=== PATIENT | female | born 1990 | race Caucasian/White ===

== ENCOUNTER → 2016-08-26 | Outpatient (CLI) | payer BC ==
--- NOTE | 2016-08-26 15:44 | US ---
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 Noticeable fullness in RUQ under br a line EXAM MEASUREMENTS: Liver Length: 19.5 cm Gallbladder Wall: 0.2 cm CBD: 0.5 cm Spleen: 11.5 cm Right Kidney: 12.5 x 5.0 x 4.2 cm Left Kidney: 10.9 x 5.1 x 5.1 cm overlying bowel gas limits study Pancreas: wnl Liver: difficult to penetrate and slightly enlarged, otherwise wnl Gallbladder: wnl Evidence for sonographic Forbes's sign: no CBD: wnl Spleen: wnl Right Kidney: wnl Left Kidney: wnl Upper IVC: wnl Abd Aorta: wnl scanned focal area of fullness in RUQ and no fluid collections or masses seen IMPRESSION: 1. Mild fatty infiltration the liver. 2. Right upper quadrant palpable region is unremarkable.
== END | disposition home or self-care (01) ==
LOC: RADUSWWP 08:27
PROVIDERS: ATTEND Family Medicine
DX: K76.0 Fatty (change of) liver, not elsewhere classified (principal); D17.1 Benign lipomatous neoplasm of skin and subcutaneous tissue of trunk
CPT/HCPCS: 76700

== ENCOUNTER → 2018-10-24 | Outpatient (CLI) | payer OTHER ==
--- NOTE | 2018-10-24 18:03 | XR ---
EXAMINATION TYPE: XR lumbar spine 2 or 3V DATE OF EXAM: 10/24/2018 COMPARISON: None HISTORY: M 51.36 TECHNIQUE: Three-view lumbar spine FINDINGS: There 5 lumbar-type vertebral bodies. The pedicles are intact. Disc heights appear preserve d. Vertebral body heights are preserved. IMPRESSION: 1. Normal three-view lumbar spine
== END | disposition home or self-care (01) ==
LOC: RADXRMAIN 14:10
PROVIDERS: ATTEND Family Medicine
DX: M51.36 Other intervertebral disc degeneration, lumbar region (principal)
CPT/HCPCS: 72100

== ENCOUNTER → 2021-10-15 | Outpatient (CLI) | payer OTHER | END | disposition home or self-care (01) | LOC: LABWHC1 09:51 | PROVIDERS: ATTEND Obstetrics & Gynecology Obstetrics | DX: Z36.9 Encounter for antenatal screening, unspecified (principal) | CPT/HCPCS: 36415; 82950 ==

== ENCOUNTER → 2021-10-22 | Outpatient (CLI) | payer OTHER ==
[2021-10-22 12:57] LABS: Glucose 3 Hour, Gest 66 mg/dL
== END | disposition home or self-care (01) ==
LOC: LABWHC1 08:03
PROVIDERS: ATTEND Obstetrics & Gynecology Obstetrics
DX: O99.810 Abnormal glucose complicating pregnancy (principal); Z3A.00 Weeks of gestation of pregnancy not specified
CPT/HCPCS: 36415; 82951; 82952

== ENCOUNTER 2021-11-17 12:51 | Outpatient (CLI) | payer OTHER ==
[2021-11-17 13:47] VITALS: BP 123/75; PULSE 104; RESP 18; TEMP 98
== END 2021-11-17 13:40 | disposition home or self-care (01) ==
LOC: FBPOP 12:51
PROVIDERS: ATTEND Obstetrics & Gynecology Obstetrics
DX: O76 Abnormality in fetal heart rate and rhythm complicating labor and delivery (principal)
CPT/HCPCS: 59025; 99213

== ENCOUNTER 2021-12-23 11:33 | Inpatient (IN) | payer OTHER ==
[2021-12-23] MEDS ORDERED: miSOPROStoL 25 MCG TAB VAGINAL PRN (11:57)
[2021-12-23] MEDS ORDERED: LACTATED RINGERS 1,000 ML IV SCH (12:00)
[2021-12-23] MEDS ORDERED: DINOPROSTONE 10 MG INSERT.ER VAGINAL ONE (12:20)
--- NOTE | 2021-12-23 12:55 | P.HPOB ---
History of Present Illness H&P Date: 12/23/21 Chief Complaint: IUP at 37-4/7 weeks, gestational hypertension with proteinuria This is a 31-year-old at 37-4/7 weeks that presents to labor and delivery for induction of labor secondary to gestational hypertension with significant proteinuria. Patient was seen in the office last week with noted blood pressures of 130s over 80s in addition to 3+ proteinuria. 24 hour urine was obtained. Results of greater than 700 mg of protein in the 24-hour urine specimen. Preeclampsia labs were essentially negative with the exception of anemia, hemoglobin of 8.5, uric acid elevated at 5.2. In addition patient had an ultrasound done around 35 weeks of reveal ing a 3 did weight 4 lbs. 13 oz., 16th percentile, MARIJA of 21. blood work she is a blood type of O+, rubella status immune, RPR nonreactive, B surface antigen negative, HIV negative, she did pass her 3 hour Glucola, she received T dap on 913, group beta strep cultures are unknown therefore we'll treat with antibiotics during labor Review of Systems Constitutional: Denies chills, Denies fatigue, Denies fever Ears, nose, mouth and throat: Denies headache Cardiovascular: Reports leg edema Respiratory: Denies dyspnea Gastrointestinal: Denies nausea, Denies vomiting Genitourinary: Reports Past Medical History History of Any Multi-Drug Resistant Organisms: None Reported Smoking Status: Never smoker Medications and Allergies Home Medications Medication Instructions Recorded Confirmed Type Omeprazole [PriLOSEC] 20 mg PO DAILY 11/17/21 12/23/21 History Vit No.179/Iron/Folic 1 each PO DAILY 11/17/21 12/23/21 History [ Tablet] Aspirin [Children's Aspirin] 81 mg PO DAILY 12/23/21 12/23/21 History Cholecalciferol [Vitamin D3 (125 125 mcg PO DAILY 12/23/21 12/23/21 History Mcg = 5000 Iu)] Levothyroxine Sodium [Synthroid] 25 mcg PO DAILY 12/23/21 12/23/21 History Allergies Allergy/AdvReac Type Severity Reaction Status Date / Time No Known Allergies Allergy Verified 11/17/21 13:12 Exam Osteopathic Statement: *. No significant issues noted on an osteopathic structural exam other than those noted in the History and Physical/Consult. Intake and Output 12/22/21 12/23/21 12/23/21 22:59 06:59 14:59 Other: Weight 143.789 kg targeted physical exam is done on this date, in general this is a well nourished well developed obese female in NAD, breathing is non labored, heart has a regular rate and rhythm, abdomen is obese and gravid, heart tones are cat 1 and no contractions are noted. On cervical exam cervix is ft/60/-3 vertex presentation based on office US. cervidil is placed without difficulty Assessment and Plan (1) 37 or more weeks gestation of Current Visit: Yes Status: Acute Code(s): VDM6030 - SNOMED Code(s): 93655603 (2) SGA (small for gestational age), , affecting care of mother, antepartum Current Visit: Yes Status: Acute Code(s): O36.5990 - MATERN CARE FOR OTH OR SUSP POOR FETL GRTH, UNSP TRI, UNSP SNOMED Code(s): 447301641 (3) Gestational HTN Current Visit: Yes Status: Acute Code(s): O13.9 - GESTATIONAL HTN W/O SIGNIFICANT PROTEINURIA, UNSP TRIMESTER SNOMED Code(s): 22092048 (4) Proteinuria complicating Current Visit: Yes Status: Acute Code(s): O12.10 - GESTATIONAL PROTEINURIA, UNSPECIFIED TRIMESTER SNOMED Code(s): 81916639 Plan: 31-year-old at 37 and 47 weeks that presents for induction of labor secondary to gestational hypertension with proteinuria. Patient did undergo IVF for conception. Small for gestational age has been watched during for the , last ultrasound 17th percentile. testing has been completed throughout the normal in nature. Patient had Cervidil place d for induction of labor. 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
[2021-12-23 12:57] LABS: Anisocytosis Slight; Basophils % (A) 0 %; Eosinophils % (A) 0 %; HCT 29.4 % (34.0-46.0); Hypochromasia Marked; Lymphocytes # (A) 1.6 k/uL (1.0-4.8); Lymphocytes % (A) 17 %; MCHC 30.6 g/dL (31.0-37.0); MCV 68.6 fL (80.0-100.0); Mean Platelet Volume 9.4; Microcytosis Marked; Monocytes # (A) 0.4 k/uL (0-1.0); Monocytes % (A) 5 %; Neutrophils # (A) 7.3 k/uL (1.3-7.7); Neutrophils % (A) 76 %; Platelet Count 223 k/uL (150-450); Poikilocytosis Slight; RBC 4.29 m/uL (3.80-5.40); WBC 9.6 k/uL (3.8-10.6)
[2021-12-23 13:10] LABS: ALT 16 U/L (4-34); AST 23 U/L (14-36); African American GFR (CKD) >90 (>60 ml/min/1.73 sqM); Blood Urea Nitrogen 12 mg/dL (7-17); LDH 497 U/L (313-618); Non-African American GFR(CKD) >90 (>60 ml/min/1.73 sqM); Uric Acid 4.8 mg/dL (3.7-7.4)
[2021-12-23 13:18] LABS: INR 0.8 (<1.2); Partial Thromboplastin Time 22.3 sec (22.0-30.0); Prothrombin Time 9.4 sec (9.0-12.0)
[2021-12-23] MEDS ORDERED: AMPICILLIN 2,000 MG in SODIUM CHLORIDE 0.9% 100 ML IVPB STA (17:07)
[2021-12-23] MEDS ORDERED: OXYTOCIN 10 UNIT/ML 1 ML VIAL IM PRN (17:07)
[2021-12-23] MEDS ORDERED: METHYLERGONOVINE 0.2 MG/ML 1 ML AMP IM PRN (17:07)
[2021-12-23] MEDS ORDERED: CARBOPROST TROMETHAMINE 250 MCG/ML 1 ML AMP IM PRN (17:07)
[2021-12-23] MEDS ORDERED: TERBUTALINE 1 MG/ML VIAL SQ PRN (17:07)
[2021-12-23] MEDS ORDERED: LIDOCAINE 0.5% (PF) 5 MG/ML (50 ML SDV) SQ PRN (17:07)
[2021-12-23] MEDS ORDERED: BUTORPHANOL 1 MG/ML 1 ML VIAL IV PRN (17:09)
[2021-12-24] MEDS: OXYTOCIN 30 UNITS/500 ML NS 30 UNIT in SALINE 1 500ML.BAG IV SCH ×2 (00:15→20:22)
[2021-12-24] MEDS: LACTATED RINGERS 1,000 ML IV SCH ×4 (00:15→18:20)
[2021-12-24] MEDS: AMPICILLIN 1,000 MG in SODIUM CHLORIDE 0.9% 50 ML IVPB SCH ×7 (04:42→23:12)
[2021-12-24] MEDS: LEVOTHYROXINE 25 MCG TAB PO SCH (06:25)
[2021-12-24] MEDS: PRENATAL VIT-IRON-FOLIC ACID 1 EACH TABLET PO SCH (09:07)
[2021-12-25] MEDS: AMPICILLIN 1,000 MG in SODIUM CHLORIDE 0.9% 50 ML IVPB SCH (03:49)
[2021-12-25] MEDS ORDERED: ceFAZolin 3 GM in SODIUM CHLORIDE 0.9% 100 ML IVPB ONE (04:39)
[2021-12-25] MEDS ORDERED: CITRIC ACID-SODIUM CITRATE 15 ML CUP PO ONE (04:39)
[2021-12-25] MEDS ORDERED: miSOPROStoL 200 MCG TAB RECTAL STA (04:51)
[2021-12-25] MEDS ORDERED: MORPHINE SULFATE (PF) 0.3 MG/0.3 ML SYR ONE (05:11)
[2021-12-25] MEDS ORDERED: ePHEDrine 50 MG/ML 1 ML VIAL ONE (05:11)
[2021-12-25] MEDS ORDERED: OXYTOCIN 30 UNITS/500 ML NS BAG IV ONE (05:11)
[2021-12-25] MEDS ORDERED: ONDANSETRON 4 MG/2 ML VIAL ONE (05:11)
[2021-12-25] MEDS ORDERED: DEXAMETHASONE SOD PHOS (MDV) 100 MG/10 ML VIAL ONE (05:11)
--- NOTE | 2021-12-25 06:12 | P.OP ---
Date of Procedure: 12/25/21 Preoperative Diagnosis: IUP at 37 and 4, gestational hypertension with proteinuria, failed induction Postoperative Diagnosis: Same Procedure(s) Performed: Primary low transverse section Anesthesia: spinal Surgeon: Libertad Maxwell Stock Room Manager #1: Leah Lobo Estimated Blood Loss (ml): 387 IV fluids (ml): 900 Urine output (ml): 100 Pathology: other (Placenta) Condition: stable Disposition: observation Indications for Procedure: 31-year-old at 37-4/7 weeks that presented to labor and delivery approximately 24 hours ago for Cervidil induction of labor. Cervidil was placed without difficulty and patient was noted to be fingertip dilated. Patient was being induced for gestational hypertension with proteinuria. Slightly elevated blood pressures in the office were noted 130s over high 80s, 140s over 90s 24 urine and preeclampsia workup was begun. Refer urine with greater than supplement milligrams of protein was appreciated. Given elevated proteinuria decision was made to proceed with induction of labor. Patient made very minimal change with the Cervidil overnight coming 1 cm/thick/high, amniotomy was performed and clear fluid was obtained. Patient was begun on Pitocin for a ugmentation of labor. Patient made no change and after almost 24 hours no cervical change has been appreciated. Patient is not uncomfortable at this time. Patient rates she has only noted cramping during the entire induction process. Patient is requesting at this time. Patient and are counseled on risks given her obesity and risk of infection. Patient states understanding and wishes to proceed. Operative Findings: Arcuate uterus is appreciated, normal ovaries bilaterally, viable female infant delivered at 541, weight of 4 lbs. 10 oz., Apgars of 8 and 9 at one and 5 minutes respectively. Description of Procedure: Patient was taken back to the operating suite where spinal anesthesia was found be adequate by the anesthesia department. She was prepped and draped in the normal sterile fashion in the dorsal supine position. A Pfannenstiel skin incision was made with the scalpel and carried through to the underlying layer of fascia. The fascia was then incised in the midline and extended laterally. The superior aspect the fascial incision was then grasped yoel clamps, elevated and underlying rectus muscles dissected off sharply. Attention then turned to the inferior aspect of the fascial incision which was grasped with Yoel clamps elevated and underlying rectus muscles dissected off sharply. The rectus muscles were in the midline the peritoneum was identified and entered. The bladder blade was then inserted and the pelvis. The vesicouterine peritoneum was identified and the bladder flap was created using sharp and blunt dissection. Hysterotomy incision was made with the scalpel, the infant was encountered in a vertex presentation. Via vacuum assisted the was deliv ered without difficulty, the umbilical cord was doubly clamped and cut and the was handing off to awaiting RN. Cord blood was then taken. The placenta was delivered mainly and the uterus was cleared of all clots and debris. The uterus was exteriorized from the abdomen and the hysterotomy incision was closed with 0 Vicryl in a running locked fashion. A second indicating suture was performed. Small amount bleeding was noted on the midportion of the uterine incision therefore a [id number]-[id number] suture was used to obtain hemostasis. The pelvis was then copiously irrigated the hysterotomy incision was inspected found to be hemostatic. The uterus was returned to the abdomen. The gutters were cleared of all clots and debris. Once again the uterine incision was inspected and found be hemostatic. The fascia was then closed with 0 Vicryl in a running fashion from one lateral edge the midline and the other lateral edge the midline. Subcu tissue was inspected and any points of bleeding were made hemostatic with the Bovie. The subcutaneous tissue was then closed with 3-0 Vicryl in a running fashion. The skin was then closed with 4-0 Vicryl in a subcuticular fashion. Steri-Strips and sterile dressings were applied. All counts were correct 2. Patient and infant tolerated delivery well and are resting comfortable he.
[2021-12-25] MEDS ORDERED: diphenhydrAMINE 50 MG/ML 1 ML VIAL IVP PRN ×2 (06:17)
[2021-12-25] MEDS ORDERED: diphenhydrAMINE 50 MG CAP PO PRN (06:17)
[2021-12-25] MEDS ORDERED: OXYTOCIN 30 UNITS/500 ML NS 30 UNIT in SALINE 1 500ML.BAG IV SCH (06:17)
[2021-12-25] MEDS ORDERED: diphenhydrAMINE 25 MG CAP PO PRN (06:17)
[2021-12-25] MEDS ORDERED: ONDANSETRON 4 MG/2 ML VIAL IVP PRN (06:17)
[2021-12-25] MEDS ORDERED: ACETAMINOPHEN IV (For NPO) 1,000 MG in EMPTY BAG 1 BAG IVPB PRN (06:17)
[2021-12-25] MEDS ORDERED: SIMETHICONE 80 MG CHEWABLE PO PRN (06:17)
[2021-12-25] MEDS ORDERED: NALOXONE 0.4 MG/ML 1 ML VIAL IV PRN (06:17)
[2021-12-25] MEDS ORDERED: ZOLPIDEM 5 MG TAB PO PRN (06:17)
[2021-12-25] MEDS ORDERED: METOCLOPRAMIDE 5 MG/ML 2 ML VIAL IVP PRN (06:17)
[2021-12-25] MEDS: LACTATED RINGERS 1,000 ML IV SCH ×5 (06:21→18:22)
[2021-12-25] MEDS: ACETAMINOPHEN TAB 500 MG TAB PO SCH ×3 (08:45→20:32)
[2021-12-25] MEDS: LEVOTHYROXINE 25 MCG TAB PO SCH (08:56)
[2021-12-25] MEDS: SENNOSIDES-DOCUSATE SODIUM 1 EACH TAB PO SCH ×2 (08:57→20:32)
[2021-12-25] MEDS: PRENATAL VIT-IRON-FOLIC ACID 1 EACH TABLET PO SCH (09:33)
[2021-12-25] MEDS ORDERED: IBUPROFEN IV 800 MG in SODIUM CHLORIDE 0.9% 250 ML IV PRN (12:00)
[2021-12-25] MEDS: IBUPROFEN 600 MG TAB PO SCH ×2 (17:17→23:18)
[2021-12-26] MEDS: LACTATED RINGERS 1,000 ML IV SCH ×3 (00:55→06:21)
[2021-12-26] MEDS: ACETAMINOPHEN TAB 500 MG TAB PO SCH ×3 (04:43→12:26)
[2021-12-26] MEDS: IBUPROFEN 600 MG TAB PO SCH ×4 (05:13→22:13)
[2021-12-26] MEDS: LEVOTHYROXINE 25 MCG TAB PO SCH (05:13)
--- NOTE | 2021-12-26 07:07 | P.PN ---
Progress Note - Text 12/26/21 647am 31-year-old female status post with spinal Duramorph. Patient seen and evaluated for postop pain control, patient has a VAS of 5 with no complains of nausea vomiting or pruritus. She does have headache which she reports as VAS of 5 with a pain located around her neck. There is no photophobia and she was sitting up while she was talking to me, at this point I do not recommend any invasive procedure. Patient works to be observed and treated with fluids and caffeine if need be
[2021-12-26 07:57] LABS: Anisocytosis Slight; Basophils % (A) 0 %; Eosinophils # (A) 0.1 k/uL (0-0.7); Eosinophils % (A) 0 %; HCT 25.2 % (34.0-46.0); Hypochromasia Marked; Lymphocytes # (A) 2.7 k/uL (1.0-4.8); Lymphocytes % (A) 23 %; MCH 20.1 pg (25.0-35.0); MCHC 29.1 g/dL (31.0-37.0); MCV 69.2 fL (80.0-100.0); Mean Platelet Volume 9.3; Microcytosis Marked; Monocytes # (A) 0.5 k/uL (0-1.0); Monocytes % (A) 4 %; Neutrophils # (A) 7.7 k/uL (1.3-7.7); Neutrophils % (A) 68 %; Platelet Count 207 k/uL (150-450); Poikilocytosis Slight; RBC 3.65 m/uL (3.80-5.40); RDW 18.2 % (11.5-15.5); WBC 11.5 k/uL (3.8-10.6)
[2021-12-26 08:05] LABS: HGB 7.3 gm/dL (11.4-16.0)
[2021-12-26] MEDS: SENNOSIDES-DOCUSATE SODIUM 1 EACH TAB PO SCH ×3 (08:13→20:00)
--- NOTE | 2021-12-26 09:00 | P.PNOBGPC ---
Subjective - Subjective Principal diagnosis: stop day 1 status post primary Interval history: patient is doing well overall. She is ambulating and voiding without difficulty. She states her pain is controlled. She is tolerating a regular diet without nausea or vomiting. She is pumping and breast-feeding. Patient reports: Reports appetite normal, Reports voiding normally, Reports pain well controlled, Reports ambulating normally : doing well Objective - Vital Signs Latest vital signs: Vital Signs Temp Pulse Resp BP Pulse Ox 12/26/21 04:00 98.2 F 77 18 130/76 12/26/21 00:00 98.4 F 85 18 130/69 12/25/21 20:00 98.6 F 144 H 18 130/72 12/25/21 16:00 97.9 F 88 16 130/78 96 12/25/21 11:00 97.4 F L 70 14 120/70 Intake and Output 12/25/21 12/26/21 12/26/21 22:59 06:59 14:59 Other: # Voids 1 - Exam Extremities: Present: normal, edema Abdomen: Present: normal appearance, soft Incision: Present: normal, dry, intact Uterus: Present: normal, firm - Labs Labs: Abnormal Lab Results - Last 24 Hours (Table) 12/26/21 Range/Units 07:11 WBC 11.5 H (3.8-10.6) k/uL RBC 3.65 L (3.80-5.40) m/uL Hgb 7.3 L D (11.4-16.0) gm/dL Hct 25.2 L (34.0-46.0) % MCV 69.2 L (80.0-100.0) fL MCH 20.1 L (25.0-35.0) pg MCHC 29.1 L (31.0-37.0) g/dL RDW 18.2 H (11.5-15.5) % Assessment and Plan (1) 37 or more weeks gestation of Current Visit: Yes Status: Acute Code(s): VAE2467 - SNOMED Code(s): 59007075 (2) SGA (small for gestational age), , affecting care of mother, antepartum Current Visit: Yes Status: Acute Code(s): O36.5990 - MATERN CARE FOR OTH OR SUSP POOR FETL GRTH, UNSP TRI, UNSP SNOMED Code(s): 582878693 (3) Gestational HTN Current Visit: Yes Status: Acute Code(s): O13.9 - GESTATIONAL HTN W/O SI GNIFICANT PROTEINURIA, UNSP TRIMESTER SNOMED Code(s): 88910899 (4) Proteinuria complicating Current Visit: Yes Status: Acute Code(s): O12.10 - GESTATIONAL PROTEINURIA, UNSPECIFIED TRIMESTER SNOMED Code(s): 17383487 (5) Failed induction of labor Current Visit: Yes Status: Acute Code(s): O61.9 - FAILED INDUCTION OF LABOR, UNSPECIFIED SNOMED Code(s): 65299837 (6) S/P section Current Visit: Yes Status: Acute Code(s): Z98.891 - HISTORY OF UTERINE SCAR FROM PREVIOUS SURGERY SNOMED Code(s): 854797408 Plan: patient is doing well postoperatively. Encouraged increase ambulation today. Once dressing is discontinued we will place overdressing an attempt to decrease risk of infection. Anticipate discharge home tomorrow.
[2021-12-26] MEDS: PRENATAL VIT-IRON-FOLIC ACID 1 EACH TABLET PO SCH (10:24)
[2021-12-26] MEDS: IRON POLYSACCHARIDES COMPLEX 150 MG CAP PO SCH (10:51)
[2021-12-27] MEDS: ACETAMINOPHEN TAB 500 MG TAB PO SCH ×2 (00:16→08:41)
[2021-12-27] MEDS: LEVOTHYROXINE 25 MCG TAB PO SCH (06:19)
[2021-12-27] MEDS: IBUPROFEN 600 MG TAB PO SCH ×2 (06:19→12:17)
[2021-12-27] MEDS: SENNOSIDES-DOCUSATE SODIUM 1 EACH TAB PO SCH (08:41)
[2021-12-27] MEDS: PRENATAL VIT-IRON-FOLIC ACID 1 EACH TABLET PO SCH (08:41)
[2021-12-27] MEDS: IRON POLYSACCHARIDES COMPLEX 150 MG CAP PO SCH (08:42)
[2021-12-27 09:03] VITALS: BP 136/87; PULSE 106; RESP 16; TEMP 97.6
[2021-12-27] MEDS ORDERED: CYCLOBENZAPRINE 10 MG TAB PO PRN (09:24)
--- NOTE | 2021-12-27 09:36 | P.DS ---
Providers Date of admission: 12/23/21 11:33 Expected date of discharge: 12/27/21 Attending physician: Libertad Maxwell Primary care physician: Stated None - Discharge Diagnosis(es) (1) 37 or more weeks gestation of Current Visit: Yes Status: Acute (2) Failed induction of labor Current Visit: Yes Status: Acute (3) Gestational HTN Current Visit: Yes Status: Acute (4) Proteinuria complicating Current Visit: Yes Status: Acute (5) S/P section Current Visit: Yes Status: Acute (6) SGA (small for gestational age), , affecting care of mother, antepartum Current Visit: Yes Status: Acute Hospital Course: This is a 31-year-old 1 now para 1 woman who was admitted at 37-4/7 weeks' gestation for induction of labor secondary to gestational hypertension with proteinuria. She was admitted and received Cervidil cervical ripening. She then underwent a Pitocin induction of labor with artificial rupture of membranes however she had no cervical roll changer approximately 24 hours of induction therefore she was taken for primary low transverse section. Findings at the time of were significant for a arcuate shaped uterus. Liveborn female weighing 4 lbs. 10 oz. with Apgars of 8 at 1 minute and 9 at 5 minutes. Please see the operative report for details. The patient's postoperative course was relatively unremarkable. Her admission hemoglobin was 9.0 and her postop day 1 hemoglobin was 7.3. She was asymptomatic with stable vital signs and no active vaginal bleeding. She did complain of significant headache and was evaluated on 2 occasions by the anesthesiology team for possible spinal headache. Her headache is not consistent with a spinal headache and on postop day 2 she describes this more as pain in her neck upper shoulders and back of her head especially with movement of her head. This is more consistent with possible muscle spasm and she was started on a trial of cyclobenzaprine. Her blood pressures remained stable throughout her postoperative course. There were mainly in the 130s over 70s to 80s. The patient strongly desired discharge home on postoperative day #2 despite ongoing pain in her neck and uterus. She had minimal lochia, her incision without healing, her vital signs are stable and she was ambulating and voiding without difficulty. She was therefore deemed stable for discharge home with close instruction for care and follow-up. Procedures: Primary low transverse section Patient Condition at Discharge: Good Plan - Discharge Summary New Discharge Prescriptions: New Ibuprofen [Motrin] 600 mg PO Q6H tab Cyclobenzaprine [Flexeril] 10 mg PO TID PRN #15 tab PRN Reason: Muscle Spasm Iron Polysaccharides Complex [Niferex-150] 150 mg PO DAILY #30 cap Sennosides-Docusate Sodium [Senokot-S] 2 each PO BID@0800,1999 tab Continue Vit No.179/Iron/Folic [ Tablet] 1 each PO DAILY Levothyroxine Sodium [Synthroid] 25 mcg PO DAILY No Action Omeprazole [PriLOSEC] 20 mg PO DAILY Cholecalciferol [Vitamin D3 (125 Mcg = 5000 Iu)] 125 mcg PO DAILY Aspirin [Children's Aspirin] 81 mg PO DAILY Discharge Medication List Omeprazole [PriLOSEC] 20 mg PO DAILY 11/17/21 [History] Vit No.179/Iron/Folic [ Tablet] 1 each PO DAILY 11/17/21 [History] Aspirin [Children's Aspirin] 81 mg PO DAILY 12/23/21 [History] Cholecalciferol [Vitamin D3 (125 Mcg = 5000 Iu)] 125 mcg PO DAILY 12/23/21 [History] Levothyroxine Sodium [Synthroid] 25 mcg PO DAILY 12/23/21 [History] Cyclobenzaprine [Flexeril] 10 mg PO TID PRN #15 tab 12/27/21 [Rx] Ibuprofen [Motrin] 600 mg PO Q6H tab 12/27/21 [Rx] Iron Polysaccharides Complex [Niferex-150] 150 mg PO DAILY #30 cap 12/27/21 [Rx] Sennosides-Docusate Sodium [Senokot-S] 2 each PO BID@0800,1999 tab 12/27/21 [Rx] Follow up Appointment(s)/Referral(s): Libertad Maxwell DO [Doctor of Osteopathic Medicine] - 1 Week Activity/Diet/Wound Care/Special Instructions: Follow-up in 1-2 weeks after surgery in the office. Call the office with any concerning signs or symptoms including fever greater than 101, severe abdominal pain, heavy vaginal bleeding, signs of wound infection, increased swelling or redness of the lower extremities, signs of depression. No driving for 2 weeks after surgery. No heavy lifting or vigorous activity until reevaluated in the office. No intercourse for 6 weeks after delivery. Discharge Disposition: HOME SELF-CARE
== END 2021-12-27 14:00 | disposition home or self-care (01) | DRG 788 ==
LOC: 4FBP 11:33
PROVIDERS: ADMIT Obstetrics & Gynecology Obstetrics; ATTEND Obstetrics & Gynecology Obstetrics
PROC: 3E0P7VZ Introduction of Hormone into Female Reproductive, Via Natural or Artificial Opening (ICD-10-PCS; 2021-12-24)
PROC: 10D00Z1 Extraction of Products of Conception, Low, Open Approach (ICD-10-PCS; principal; 2021-12-25 05:16)
DX: O12.14 Gestational proteinuria, complicating childbirth (principal); O36.5930 Maternal care for other known or suspected poor fetal growth, third trimester, not applicable or unspecified; O61.9 Failed induction of labor, unspecified; O99.02 Anemia complicating childbirth; O99.214 Obesity complicating childbirth; Q51.810 Arcuate uterus; Z37.0 Single live birth; Z3A.37 37 weeks gestation of pregnancy; Z79.82 Long term (current) use of aspirin; Z79.890 Hormone replacement therapy
CPT/HCPCS: 82565; 83615; 84450; 84460; 84520; 84550; 85025; 85384; 85610; 85730; 86850; 86900; 86901; 88307